=== PATIENT | male | born 1975 ===

== ENCOUNTER 2017-08-16 20:41 | Emergency (ER) | payer OTHER ==
--- NOTE | 2017-08-16 21:17 | ED PDOC ---
HPI: Psych/Substance Abuse Time Seen by Provider: 08/16/17 20:49 Chief Complaint (Nursing): Alcohol Ingestion Chief Complaint (Provider): Alcohol Intoxication History Per: Patient History/Exam Limitations: no limitations Onset/Duration Of Symptoms: Hrs Suicide/Self Injury Attempted (Context): None Modifying Factor(s): Alcohol Severity: None Additional Complaint(s): 42 year old male is brought into the emergency department by EMS for alcohol intoxication. As per EMS, the patient was found by security guards laying in [place] bushes at [facility]. Patient admits that he has been drinking heavily today. Patient was also found incontinent of his urine with multiple scratches from the thorn bushes. Denies abdominal pain. Past Medical History Reviewed: Historical Data, Nursing Documentation, Vital Signs Vital Signs: Last Vital Signs Temp 97.2 F L 08/16/17 20:42 Pulse 100 H 08/16/17 20:42 Resp 17 08/16/17 20:42 BP 146/92 H 08/16/17 20:42 Pulse Ox 98 08/16/17 20:42 - Surgical History Surgical History: No Surg Hx - Family History Family History: States: Unknown Family Hx - Social History Current smoker - smoking cessation education provided: Yes Ex-Smoker (has not smoked in the last 12 months): Yes Alcohol: Social Drugs: Denies - Allergies Allergies/Adverse Reactions: Allergies Allergy/AdvReac Type Severity Reaction Status Date / Time No Known Allergies Allergy Verified 08/16/17 20:45 Review of Systems ROS Statement: Except As Marked, All Systems Reviewed And Found Negative Gastrointestinal: Negative for: Abdominal Pain Psych: Positive for: Other (Alcohol Intoxication) Physical Exam - Reviewed Nursing Documentation Reviewed: Yes Vital Signs Reviewed: Yes - Physical Exam Appears: Positive for: Non-toxic, No Acute Distress (unkemp; malodorous) Skin: Positive for: Normal Color (Diffuse liner superficial abrasions and some papules on chest and arms that he reports are from the plants) Eye Exam: Positive for: EOMI, PERRL, Conjunctival injection ENT: Positive for: Other (AOB) Neck: Positive for: Painless ROM, Supple Cardiovascular/Chest: Positive for: Regular Rate, Rhythm. Negative for: Murmur Respiratory: Positive for: Normal Breath Sounds. Negative for: Wheezing Gastrointestinal/Abdominal: Positive for: Soft. Negative for: Tenderness Back: Positive for: Normal Inspection. Negative for: Muscle Spasm Extremity: Positive for: Normal ROM. Negative for: Deformity Lymphatic: Negative for: Adenopathy Neurologic/Psych: Positive for: Other (Slurred speech; slow thought process and poor concentration) - ECG O2 Sat by Pulse Oximetry: 98 (RA) Pulse Ox Interpretation: Normal Medical Decision Making Medical Decision Makin Initial Impression 42 year old male presenting with alcohol intoxication Initial Plan: * Accucheck * Reevaluation On reassessments at 2h, 4h, and 6h during ER stay, pt sleeping comfortably. 530p Pt awake and oriented. Steady gait with normal speech. No signs of withdrawal. Stable for DC. Documented by Sena Moody acting as a scribe for Elyse Zamora MD. All medical record entries made by the Scribe were at my direction and personally dictated by me. I have reviewed the chart and agree that the record accurately reflects my personal performance of the history, physical exam, medical decision making, and the department course for this patient. I have also personally directed, reviewed, and agree with the discharge instructions and disposition. Disposition - Clinical Impression Clinical Impression: Alcohol intoxication - Disposition Referrals: [facility] [Outside] Disposition: Routine/Home Disposition Time: 05:00 Condition: IMPROVED Instructions: Alcohol Use - When Is Drinking a Problem? Print Language: MALAWIAN
[2017-08-17 05:32] VITALS: BP 148/91; PULSE 69; RESP 16; TEMP 98
[2017-08-23 21:21] VITALS: O2SAT 98
== END 2017-08-17 05:45 | disposition home or self-care (01) ==
LOC: H.ER 20:41
DX: F10.129 Alcohol abuse with intoxication, unspecified (principal); F17.200 Nicotine dependence, unspecified, uncomplicated; R32 Unspecified urinary incontinence